=== PATIENT | male | born 1990 | race Caucasian/White ===

== ENCOUNTER 2019-10-24 14:34 | Emergency (ER) | payer SELFPAY ==
[2019-10-24] MEDS ORDERED: IBUPROFEN 400 MG TAB ONE ×2 (16:10→16:12)
== END 2019-10-24 16:30 | disposition home or self-care (01) ==
LOC: MED 14:34
DX: H53.003 Unspecified amblyopia, bilateral (principal)
CPT/HCPCS: 99281

== ENCOUNTER 2022-02-12 11:30 | Emergency (ER) | payer MEDICAID ==
[~2022-02-12] VITALS: Ht 175.3 cm; Wt 70.3 kg
[2022-02-12 11:32] VITALS: BP 140/80
--- NOTE | 2022-02-12 11:36 | NUR ---
PT AMBULATED TO ER BED 3
--- NOTE | 2022-02-12 11:38 | NUR ---
Dr De La Cruz at bedside examining pt
[2022-02-12] MEDS ORDERED: INSULIN REGULAR, HUMAN 100 UNIT/ML VIAL SUBQ ONE (12:00)
[2022-02-12] MEDS ORDERED: NACL 0.9% 1,000 ML IV ONE (12:00)
--- NOTE | 2022-02-12 12:01 | NUR ---
31 y/o male, c/o right ear pain that started 3 weeks ago. Patient states "pain is now radiating to throat." Patient was previosuly seen at [facility] and [facility] and given Neomycin and Amoxicillin for Ear pain, patient took for 1 week with no relief. Medical History: DM2 NKDA Medications: amoxicillin
[2022-02-12] MEDS ORDERED: CARB100C85 PO (12:27)
[2022-02-12 12:38] VITALS: BP 140/80
--- NOTE | 2022-02-12 12:39 | NUR ---
Patient discharged with v/s stable. Written and verbal after care instructions given. Patient alert, oriented and verbalized understanding of instructions. Ambulatory with steady gait. All questions addressed prior to discharge. ID band removed. Patient advised to follow up with PMD. Rx of Carbamezapine given. Opportunity to ask questions provided and answered.
== END 2022-02-12 12:39 | disposition home or self-care (01) ==
LOC: MED 11:30
DX: H92.01 Otalgia, right ear (principal); G50.0 Trigeminal neuralgia; E11.65 Type 2 diabetes mellitus with hyperglycemia; L40.9 Psoriasis, unspecified
CPT/HCPCS: 99283